=== PATIENT | female | born 1955 ===

== ENCOUNTER 2023-02-17 17:20 | Emergency (ER) | payer OTHER ==
[~2023-02-17] VITALS: Ht 157.5 cm; Wt 70.3 kg
[2023-02-17 18:09] LABS: BASOPHILS ABSOLUTE AUTO 0.03 K/mm3 (0.00-0.23); BASOPHILS PERCENT AUTO 0 % (0-2); EOSINOPHILS PERCENT AUTO 1 % (0-6); Hematocrit 39.7 % (33.0-51.0); Hemoglobin 13.6 g/dL (11.5-16.0); IMMATURE GRAN ABSOLUTE AUTO 0.03 K/mm3 (0.00-0.10); IMMATURE GRAN PERCENT AUTO 0 % (0-1); LYMPHOCYTES ABSOLUTE AUTO 2.27 K/mm3 (0.84-5.20); LYMPHOCYTES PERCENT AUTO 21 % (21-46); MONOCYTES PERCENT AUTO 7 % (4-13); Mean Corpuscular HGB 31.3 pg (26.0-34.0); Mean Corpuscular HGB Conc 34.3 g/dL (31.5-36.5); Mean Corpuscular Volume 92 fL (80-100); Mean Platelet Volume 9.6 fL (9.1-12.4); NEUTROPHILS ABSOLUTE AUTO 7.52 K/mm3 (1.96-9.15); NEUTROPHILS PERCENT AUTO 71 % (41-73); Platelet Count 253 K/mm3 (150-400); RDW Coefficient Variation 12.2 % (11.7-14.2); RDW Standard Deviation 40.9 fL (35.1-46.3); Red Blood Cell Count 4.34 M/mm3 (3.80-5.20); White Blood Cell Count 10.65 K/mm3 (4.00-11.30)
[2023-02-17 18:33] LABS: Albumin, Blood 3.8 g/dL (3.4-5.0); Albumin/Globulin Ratio 1.1 (0.8-1.8); Bilirubin, Total 0.2 mg/dL (0.1-1.0); Bun/Creatinine Ratio 20.9 (12.0-20.0); Calcium, Blood 9.3 mg/dL (8.5-10.1); Creatinine, Blood 0.82 mg/dL (0.40-1.00); Globulin, Blood 3.5 g/dL (2.2-4.0); Potassium, Blood 4.1 mmol/L (3.5-5.5); Total Protein, Blood 7.3 g/dL (6.4-8.2)
[2023-02-17 21:45] VITALS: BP 180/75
[2023-02-17] MEDS ORDERED: PROM25 PO (22:42)
[2023-02-17] MEDS ORDERED: DICY20 PO (22:42)
== END 2023-02-17 22:55 | disposition home or self-care (01) ==
LOC: ER 17:20
PROVIDERS: Physician Assistant
DX: A08.4 Viral intestinal infection, unspecified (principal)
CPT/HCPCS: 74176; 80053; 83690; 84484; 85025; 93005; 93010; 96374; 99284-25; A9270; J2405; J7030

== ENCOUNTER 2023-04-17 22:14 | Emergency (ER) | payer OTHER ==
[~2023-04-17] VITALS: Ht 154.9 cm; Wt 70.3 kg
[~2023-04-17 22:14] MED LIST: DICY20 PO; PROM25 PO
[2023-04-17] MEDS ORDERED: LOSARTAN POTASS50 MG PO (22:45)
[2023-04-18 00:09] VITALS: BP 113/64
[2023-04-18] MEDS ORDERED: Percocet 5-3251 EACH PO (00:17)
== END 2023-04-18 01:01 | disposition home or self-care (01) ==
LOC: ER 22:14
DX: S42.212A Unspecified displaced fracture of surgical neck of left humerus, initial encounter for closed fracture (principal); S42.292A Other displaced fracture of upper end of left humerus, initial encounter for closed fracture; I10 Essential (primary) hypertension; W01.0XXA Fall on same level from slipping, tripping and stumbling without subsequent striking against object, initial encounter
CPT/HCPCS: 73060; 96374; 96375; 99284-25; A9270; J1885; J3010